=== PATIENT | male | born 2000 | race Caucasian/White ===

== ENCOUNTER 2021-06-23 19:09 | Emergency (ER) | payer OTHER ==
[~2021-06-23] VITALS: Ht 188 cm; Wt 113.6 kg
[2021-06-23 19:35] VITALS: BP 119/86
--- NOTE | 2021-06-23 21:29 | PHYS DOC ---
General Adult EDM: Chief Complaint: KNEE INJURY HPI: HPI: Patient is a 20-year-old male being seen in the ER today for right knee injury. Patient reports that he was diving into third base while playing softball and he felt his knee tensed up and pop. He rates his pain 6 out of 10. It is worse with movement. He has taken ibuprofen and applied an Huy wrap and elevation. Patient reports that he is able to bear weight and ambulate. Patient denies any decreased sensation to his extremity or tingling. (JANNET ROSENBERG APRN) Review of Systems: Review of Systems: 14 body systems of the review of systems have been reviewed. See HPI for p ertinent positive and negative responses, otherwise all other systems are negative, nonpertinent or noncontributory (JANNET ROSENBERG APRN) Allergies: Allergies: Allergies Coded Allergies Type Severity Reaction Last Updated Verified Cephalosporins Allergy Unknown 06/23/21 Yes Sulfa (Sulfonamide Antibiotics) Allergy Unknown 06/23/21 Yes (JANNET ROSENBERG APRN) Physical Exam: PE: Constitutional: Well developed, well nourished, no acute distress, non-toxic appearance. [] HENT: Normocephalic, atraumatic Eyes: PERRL, conjunctiva normal, no discharge. [] Neck: Normal range of motion, no tenderness, supple, no stridor. [] Cardiovascular: Normal peripheral perfusion Lungs & Thorax: Normal work of breathing, no tachypnea Skin: Warm, dry, no erythema, no rash. [] Back: Normal range of motion Extremities: No tenderness, no cyanosis, no clubbing, ROM intact, no edema. Right knee: Swelling noted to the anterior aspect of right knee, abrasion noted to anterior aspect of right knee, limited flexion due to pain, full extension, neuro intact. Neurologic: Alert and oriented X 3, normal motor function, normal sensory function, no focal deficits noted. [] Psychologic: Affect normal, judgement normal, mood normal. [] (JANNET ROSENBERG APRN) EKG: EKG: [] (JANNET ROSENBERG APRN) Radiology/Procedures: Radiology/Procedures: X-ray right knee negative for any acute findings as read by myself and Dr. Correa. (JANNET ROSENBERG APRN) Heart Score: C/O Chest Pain: No Risk Factors: Risk Factors: DM, Current or recent (<one month) smoker, HTN, HLP, family history of CAD, obesity. Risk Scores: Score 0 - 3: 2.5% MACE over next 6 weeks - Discharge Home Score 4 - 6: 20.3% MACE over next 6 weeks - Admit for Clinical Observation Score 7 - 10: 72.7% MACE over next 6 weeks - Early Invasive Strategies (JANNET ROSENBERG APRN) Course & Med Decision Making: Course & Med Decision Making Pertinent Labs and Imaging studies reviewed. (See chart for details) [] Patient is a 20-year-old male being seen for right knee injury after injuring it while sliding into third base while playing softball today. An x-ray was performed of his knee and it showed no acute findings. Patient's knee was placed in an Huy wrap. Patient educated on the rice protocol. I discussed with patient all findings and diagnostic testing as well as the need to follow-up with PCP for further evaluation and treatment or return to the ER if any new or worsening symptoms. Strict return precautions were also discussed at length. Patient voiced understanding and agreement with the plan. Patient is hemodynamically stable at the time of disposition. (JANNET ROSENBERG APRN) Dragon Disclaimer: Dragon Disclaimer: This electronic medical record was generated, in whole or in part, using a voice recognition dictation system. (JANNET ROSENBERG APRN) Attending Co-Sign The patient was seen and interviewed as well as examined at the bedside. The chart was reviewed. The case was discussed. Agree with the plan of care. (CARISSA CORREA DO) Departure Departure: Impression: Primary Impression: Knee bursitis Qualified Codes: M70.51 - Other bursitis of knee, right knee Disposition: HOME / SELF CARE / HOMELESS Condition: GOOD Referrals: LAMAR ESTEVEZ DO (PCP) Patient Instructions: Bursitis, RICE - Routine Care for Injuries Additional Instructions: You were seen in the emergency department today for a musculoskeletal problem that will likely improve over time. As we discussed, the x-ray of your right knee was negative for any fracture. Your symptoms may be improved by something called the rice protocol. This is rest, ice, compression, elevation. Please follow-up when doing intense exercises that may make the pain worse. Sometimes gentle stretching can provide relief, but be careful to injury. It is important to perform gentle range of motion exercises to prevent stiff joints and chronic pain. Use ice packs over the affected areas to help decrease your pain. For the first 24 hours you can apply ice 20 minutes on 20 minutes off for 4 times per day. Sometimes compression such as the use of an Huy wrap can help with the swelling. You may also elevate the affected area to help with the swelling. You can also take Tylenol or ibuprofen for pain. Follow-up with your primary care provider soon as you can regarding your ER visit. EMERGENCY DEPARTMENT GENERAL DISCHARGE INSTRUCTIONS Thank you for coming to [facility] (ED) today and trusting us with you care. We trust that you had a positivie experience in our Emergency Department. If you wish to speak to the department management, you may call the director at [phone]. YOUR FOLLOW UP INSTRUCTIONS ARE FOLLOWS: 1. Do you have a private Doctor? If you do not have a private doctor, please ask for a resource list of physicians or clinics that may be able to assist you with follow up care. 2. The Emergency Physician has interpreted your x-rays. The X-Ray specialist will also review them. If there is a change in the findings, you will be notified in 48 hours when at all possible. 3. A lab test or culture has been done, your results will be reviewed and you will be notified if you need a change in treatment. ADDITIONAL INSTRUCTIONS AND INFORMATION: 1. Your care today has been supervised by a physician who is specially trained in emergency care. Many problems require more than one evaluation for a complete diagnosis and treatment. We recommend that you schedule your follow up appointment as recommended to ensure complete treatment of you illness or injury. If you are unable to obtain follow up care and continue to have a problem, or if your condition worsens, we recommend that you return to the ED. 2. We are not able to safely determine your condition over the phone nor are we able to give sound medical advice over the phone. For these safety reasons, if you call for medical advice we will ask you to come to the ED for further evaluation. 3. If you have any questions regarding these discharge instructions please call the ED at [phone]. SAFETY INFORMATION: In the interest of safety, wellness, and injury prevention; we encourage you to wear your sealbelt, if you smoke; quite smoking, and we encourage family to use a protective helmet for bicycling and other sporting events that present an increased risk for head injury. IF YOUR SYMPTOMS WORSEN OR NEW SYMPTOMS DEVELOP, OR YOU HAVE CONCERNS ABOUT YOUR CONDITION; OR IF YOUR CONDITION WORSENS WHILE YOU ARE WAITING FOR YOUR FOLLOW UP APPOIN TMENT; EITHER CONTACT YOUR PRIMARY CARE DOCTOR, THE PHYSICIAN WHOSE NAME AND NUMBER YOU WERE GIVEN, OR RETURN TO THE ED IMMEDIATELY. JANNET ROSENBERG APRN Jun 23, 2021 21:29 CARISSA CORREA DO Jun 24, 2021 05:37
--- NOTE | 2021-06-23 22:16 | RAD ---
Exam: Right knee 4 views INDICATION: Right knee injury TECHNIQUE: Frontal, lateral, oblique and sunrise views of the right knee Comparisons: None FINDINGS: Bone mineralization is normal. No acute or healed fractures. Soft tissues are unremarkable. Joint spa piotr are well-maintained. IMPRESSION: No acute osseous abnormality Electronically signed by: Vinny Vazquez MD (06/23/2021 10:13 PM) TOMMY
== END 2021-06-23 22:05 | disposition home or self-care (01) ==
LOC: ER 19:09 → EDBD 19:09 → ER 22:05
DX: S80.211A Abrasion, right knee, initial encounter (principal); M70.51 Other bursitis of knee, right knee; Z88.2 Allergy status to sulfonamides; Z88.1 Allergy status to other antibiotic agents; X50.9XXA Other and unspecified overexertion or strenuous movements or postures, initial encounter; Y93.64 Activity, baseball; Y92.89 Other specified places as the place of occurrence of the external cause; Y99.8 Other external cause status
CPT/HCPCS: 73564; 99283